=== PATIENT | female | born 1980 | race Caucasian/White ===

== ENCOUNTER → 2016-10-22 | Outpatient (CLI) | payer OTHER | LOC: KOH-I 13:02 | DX: M54.2 Cervicalgia (principal); M47.892 Other spondylosis, cervical region | CPT/HCPCS: 72050 ==

== ENCOUNTER 2020-10-11 14:12 | Emergency (ER) | payer OTHER ==
[2020-10-11 14:59] LABS: HEMOGLOBIN 12.7 gm/dl (12.3-15.3); RED BLOOD COUNT 3.86 M/UL (4.00-5.10); WHITE BLOOD COUNT 8.8 K/UL (4.5-11.0)
[2020-10-11 15:46] LABS: BUN/CREATININE RATIO 11 (0-10)
[2020-10-11] MEDS ORDERED: NEOSPORIN68 ML TP (17:01)
[2020-10-11] MEDS ORDERED: CEFUROXIME500 MG PO (17:01)
[2020-10-11] MEDS ORDERED: IBUPROFEN800 MG PO (17:01)
== END 2020-10-11 18:00 | disposition home or self-care (01) ==
LOC: ER1 14:12
PROVIDERS: Preventive Medicine Occupational Medicine
DX: S80.02XA Contusion of left knee, initial encounter (principal); S80.01XA Contusion of right knee, initial encounter; S90.01XA Contusion of right ankle, initial encounter; S20.311A Abrasion of right front wall of thorax, initial encounter; S30.811A Abrasion of abdominal wall, initial encounter; S30.810A Abrasion of lower back and pelvis, initial encounter; V49.40XA Driver injured in collision with unspecified motor vehicles in traffic accident, initial encounter; Y92.410 Unspecified street and highway as the place of occurrence of the external cause; F17.210 Nicotine dependence, cigarettes, uncomplicated
CPT/HCPCS: 70450; 71260; 72125; 72128; 72131; 80053; 84702; 85025; 99284; J7030; Q9967

== ENCOUNTER → 2021-01-28 | Outpatient (CLI) | payer OTHER ==
[~2021-01-28] MED LIST: CEFUROXIME500 MG PO; IBUPROFEN800 MG PO; NEOSPORIN68 ML TP
== END ==
LOC: KOH-I 08:00
DX: M50.10 Cervical disc disorder with radiculopathy, unspecified cervical region (principal)
CPT/HCPCS: 72141